=== PATIENT | female | born 1990 | race Caucasian/White ===

== ENCOUNTER 2019-06-20 11:22 | Day surgery (SDC) | payer BC ==
--- NOTE | 2019-06-15 10:52 | HP ---
AMENDED REPORT NOW INCLUDES DESIGNATED COSIGNER PREOPERATIVE HISTORY AND PHYSICAL: DATE OF ADMISSION/SURGERY: 06/20/19 DATE OF OFFICE VISIT/ENCOUNTER: 06/14/19 ATTENDING SURGEON: Ritu Skaggs MD.* (DICTATED BY IDRIS VARGAS) PROCEDURE: Right long finger extensor tendon repair, possible pinning. 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 She complains of an injury to her right middle finger, which occurred on 06/02/19 and then a second injury on 06/09/19. She cut her finger with a knife while cutting some food initially and she had some sutures placed. Then, she was messing around with her kids and she felt a pop in her finger on 06/09/19. Since then, she has not been able to extend the finger very well and it is developing a deformity. She was referred to Dr. Skaggs for further evaluation and treatment considerations. Upon evaluation, it was determined that she had an extensor tendon rupture of the right long finger. Surgical intervention has been recommended and the patient has consented to proceed. PAST MEDICAL HISTORY: Unremarkable. PAST SURGICAL HISTORY: Oral surgery. CURRENT MEDICATIONS: Aspirin 325 mg one tab daily, which she is using for her current problem. ALLERGIES: No known drug allergies. FAMILY MEDICAL HISTORY: Diabetes, hypertension, COPD. 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 She is a former smoker. She quit about 3 years ago. Prior to that, she smoked for 2 years about 4 cigarettes a day. She denies recreational drug use. She drinks alcohol on occasion. REVIEW OF SYSTEMS: Negative for general, cephalic, cardiovascular, respiratory , GI, , endocrine, integumentary, other musculoskeletal, neurologic, and hematologic symptoms. Infectious Disease: Negative for MRSA, hepatitis C, and HIV. PHYSICAL EXAMINATION GENERAL: A well-developed, well-nourished 28-year-old female, in no acute distress. VITAL SIGNS: Height 5 feet 11 inches, weight 144 pounds. Pulse rate 76, blood pressure 130/84. HEENT: Normocephalic, atraumatic. Pupils are equal, round, and reactive to light and accommodation. Extraocular movements are intact. Throat is clear. NECK: Supple. No palpable lymph nodes. PULMONARY: Lungs are clear to auscultation bilaterally. No wheezes, rales, or rhonchi. CARDIOVASCULAR: Regular rate and rhythm. S1, S2. No murmurs, rubs, or gallops. No edema. ABDOMEN: Positive bowel sounds. Soft, nontender. NEUROLOGICAL: Alert and oriented x3. Cranial nerves II through XII are intact. Sensation is intact to light touch. MUSCULOSKELETAL: On exam of her right hand, she has a healed laceration over the PIP joint of the middle finger and the index finger. She has full active extension of the index finger against resistance with minimal pain. She cannot extend against resistance with the middle finger. She has developed a boutonniere deformity with hyperextension of the DIP joint. She does have active DIP flexion and she can flex her PIP joint, but she cannot make a tight fist. She has intact neurovascular function. Wrist motion is normal. 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 PLAN/RECOMMENDATIONS: The patient is scheduled to undergo a right long finger extensor tendon repair and possible pinning with Dr. Skaggs on 06/20/19. She will return to the office 10 days postop for followup and suture removal. A prescription for tramadol was e-scribed to the patient's pharmacy for postoperative pain management. IDRIS VARGAS [id number]/CPS #: [id number] MTDJackson
[~2019-06-20 11:22] MED LIST: Buffered Lidocaine 1% SYRIN* 1 ML/SYRINGE INTRADERM ONE; Dexamethasone TAB* 4 MG PO ONE; DiMENhydriNATE IV* 50 MG/ML VIAL IV PUSH PRN; Famotidine IV* 10 MG/ML 2 ML (20 mg) IV ONE; HYDROmorphone INJ1* 1 MG/ML SYRINGE IV PRN; Lactated Ringers 1000 ML Bag* 1,000 ML IV SCH; Naloxone* 0.4 MG/ML 1 ML VIAL IV PRN; Ondansetron ODT TAB* 4 MG PO ONE; PROCHLORPERAZINE INJ 5 MG/ML 2 ML VIAL IV PRN; Scopolamine 1.5 mg* PATCH TRANSDERM PRN; fentaNYL* 50 MCG/ML 2 ML VIAL (100 MCG VIAL) IV PRN; oxyCODONE TAB* 5 MG TAB PO PRN
[2019-06-20] MEDS ORDERED: Dexamethasone TAB* 4 MG ONE (12:18)
[2019-06-20] MEDS ORDERED: Famotidine IV* 10 MG/ML 2 ML (20 mg) ONE (12:18)
[2019-06-20] MEDS ORDERED: Ondansetron ODT TAB* 4 MG ONE (12:18)
[2019-06-20] MEDS ORDERED: ceFAZolin 2 GM in NS PREMIX(*) 2 GM/100 ML BAG IVPB ONE (12:18)
[2019-06-20] MEDS ORDERED: Propofol* 10 MG/ML 20 ML BTL ONE (12:37)
[2019-06-20] MEDS ORDERED: fentaNYL* 50 MCG/ML 2 ML VIAL (100 MCG VIAL) ONE (12:37)
[2019-06-20] MEDS ORDERED: Midazolam* 1 MG/ML 5 ML VIAL (5 MG) ONE (12:37)
[2019-06-20] MEDS ORDERED: Lidocaine 1% INJ* 10 MG/ML 30 ML SDV ONE (13:04)
[2019-06-20 14:20] VITALS: BP 118/84
[2019-06-23] MEDS ORDERED: Scopolamine PATCH Remove* 1 NOTE MISC PATCH OFF ONE (07:59)
== END 2019-06-20 14:34 | disposition home or self-care (01) ==
LOC: OREAST 11:22
PROVIDERS: ATTEND Orthopaedic Surgery
DX: S66.312A Strain of extensor muscle, fascia and tendon of right middle finger at wrist and hand level, initial encounter (principal); X50.0XXA Overexertion from strenuous movement or load, initial encounter; Y92.009 Unspecified place in unspecified non-institutional (private) residence as the place of occurrence of the external cause
CPT/HCPCS: 76000; 81025; A9270-GY; C1776; J0690; J2250; J2704; J3010; J8540

== ENCOUNTER 2023-03-12 11:58 | Inpatient (IN) ==
[2023-03-12] MEDS ORDERED: Lactated Ringers 1000 ml BAG 1,000 ML IV ONE (12:19)
[2023-03-12] MEDS ORDERED: Lidocaine 1% VIAL 10 MG/ML 30 ML VIAL INJ PRN (12:19)
[2023-03-12 13:31] LABS: Urine Benzodiazepine Screen None Detected (None Detect); Urine Cannabinoids Screen None Detected (None Detect); Urine Opiates Screen None Detected (None Detect)
[2023-03-12 13:54] LABS: Urine Appearance Clear; Urine Bilirubin Negative (Negative); Urine Blood 1+ (Negative); Urine Color Straw; Urine Glucose Negative (Negative); Urine Ketones Negative (Negative); Urine Nitrite Negative (Negative); Urine Protein Negative (Negative); Urine Specific Gravity 1.002 (1.002-1.030); Urine Urobilinogen Negative (Negative)
[2023-03-12 14:38] LABS: Urine Bacteria Absent (Absent); Urine Red Blood Cell Absent (Absent); Urine Squamous Epithelial Cell Present (Absent); Urine White Blood Cell Trace(0-5/hpf) (Absent)
[2023-03-12] MEDS ORDERED: Lactated Ringers 1000 ml BAG 1,000 ML IV SCH ×2 (16:00→23:45)
[2023-03-12] MEDS ORDERED: Oxytocin in LR 20,000 MILLI.UNIT/1,000 ML BAG IV SCH ×2 (16:00→23:45)
[2023-03-12 16:18] LABS: ABS Basophils 0.1 10^3/uL (0.0-0.1); ABS Lymphocytes 2.4 10^3/uL (1.0-4.8); ABS Monocytes 0.8 10^3/uL (0.0-0.9); ABS Neutrophils 8.9 10^3/uL (1.5-7.6); ABS Nucleated RBC 0.01 10^3/ul; Eosinophil % 0.2 %; Hematocrit 34.1 % (35-45); Hemoglobin 11.2 g/dL (11.5-14.3); Lymphocyte % 19.5 %; Mean Corpuscular Hemoglobin 24.8 pg (27-33); Mean Corpuscular Hgb Conc 32.9 g/dL (31-36); Mean Corpuscular Volume 75.3 fL (80-97); Mean Platelet Volume 8.4 fL (7.5-11.2); Nucleated Red Blood Cells % 0.1 %/100WBC (0.0-0.8); Platelet Count 279 10^3/uL (150-450); Red Blood Count 4.54 10^6/uL (3.63-4.92); Red Cell Distribution Width 13.4 % (12-17); White Blood Count 12.2 10^3/uL (3.8-11.8)
[2023-03-12] MEDS ORDERED: Methylergonovine 0.2 mg AMPULE 1 ml AMP ONE (23:29)
[2023-03-12] MEDS ORDERED: Methylergonovine 0.2 mg AMPULE 1 ml AMP IM ONE (23:44)
[2023-03-12] MEDS ORDERED: Tetan/Diph/Pertus SYR(Tdap) 0.5 ML SYR(BOOSTRIX) use SYR contains LATEX IM ONE (23:44)
[2023-03-12] MEDS ORDERED: Dibucaine 1% OINT 28.35 GM TUBE PR PRN (23:44)
[2023-03-12] MEDS ORDERED: Witch Hazel PAD JAR TOPICAL PRN (23:44)
[2023-03-13 08:34] LABS: ABS Lymphocytes 1.7 10^3/uL (1.0-4.8); ABS Monocytes 0.5 10^3/uL (0.0-0.9); ABS Nucleated RBC 0.01 10^3/ul; Eosinophil % 0.1 %; Hematocrit 29.4 % (35-45); Hemoglobin 9.8 g/dL (11.5-14.3); Lymphocyte % 12.9 %; Mean Corpuscular Hemoglobin 25.1 pg (27-33); Mean Corpuscular Hgb Conc 33.3 g/dL (31-36); Mean Corpuscular Volume 75.4 fL (80-97); Mean Platelet Volume 8.2 fL (7.5-11.2); Platelet Count 234 10^3/uL (150-450); Red Cell Distribution Width 13.7 % (12-17); White Blood Count 13.3 10^3/uL (3.8-11.8)
[2023-03-14 07:30] VITALS: BP 119/62
[2023-03-14] MEDS ORDERED: Tetan/Diph/Pertus SYR(Tdap) 0.5 ML SYR(BOOSTRIX) use SYR contains LATEX IM ONE (09:00)
[2023-03-15 12:42] LABS: Chlamydia trachomatis NAA Negative (Negative); Neisseria gonorrhoeae (GC) NAA Negative (Negative)
== END 2023-03-14 11:34 | disposition home or self-care (01) | DRG 560 ==
LOC: MCHOBOUT 11:58 → MCHOB 12:22
PROVIDERS: ADMIT Midwife; ATTEND Midwife